=== PATIENT | female | born 1990 | race Caucasian/White ===

== ENCOUNTER → 2016-09-23 | Outpatient (REF) | payer BC ==
[~2016-09-23] MED LIST: ACET50TAOT PO; BROM1TAB PO; CYCL10TA PO; IBUP800T23 PO
[2016-09-23 16:18] LABS: FOLLICLE STIMULATING HORMONE 4.3 mIU/mL; LUTEINIZING HORMONE 2.3 mIU/mL
== END ==
LOC: M LABDRAW1 15:36
PROVIDERS: ATTEND Internal Medicine Endocrinology, Diabetes & Metabolism
DX: E22.1 Hyperprolactinemia (principal)

== ENCOUNTER → 2016-10-08 | Outpatient (REF) | payer BC | LOC: M SFHCWAGY 15:18 | PROVIDERS: ATTEND Nurse Practitioner Women's Health | DX: Z12.4 Encounter for screening for malignant neoplasm of cervix (principal) ==

== ENCOUNTER → 2017-03-16 | Outpatient (CLI) | payer BC ==
[~2017-03-16] MED LIST changes: +IBUP1TAB7 PO; -IBUP800T23 PO
--- NOTE | 2017-03-16 20:56 | REP ---
Clinical: Right-sided pain. Technique: AP, lateral, flexion/extension, bilateral oblique, and open-mouth views. Findings: Alignment and lordosis is maintained. There is no evidence for acute fracture / compression injury or subluxation. No significant degenerative changes are appreciated. Oblique views demonstrate patent neural foramen. Open mouth view demonstrates normal C1-C2 articulation and odontoid process. Impression: Normal cervical spine series. Signed by Low Elizalde MD 03/16/2017 08:49 P
== END ==
LOC: M WUC 10:49
PROVIDERS: ATTEND Physician Assistant
DX: S13.4XXA Sprain of ligaments of cervical spine, initial encounter (principal); X58.XXXA Exposure to other specified factors, initial encounter; Y93.9 Activity, unspecified; Y92.9 Unspecified place or not applicable; Y99.8 Other external cause status

== ENCOUNTER → 2017-04-14 | Outpatient (CLI) | payer BC ==
--- NOTE | 2017-04-14 15:05 | REP ---
TRANSVAGINAL PELVIC ULTRASOUND, FOLLICLE STUDY: Real-time ultrasound evaluation of pelvis performed utilizing transvaginal technique. The uterus measures 6.9 x 3.2 x 1.9 cm. Endometrial stripe is trilaminar with thickness of 3 mm. There is no free fluid. The right ovary measures 3.4 x 2.7 x 1.9 cm. Multiple subcentimeter follicles are seen in the right ovary with no follicles greater than 1 cm in diameter. The left ovary measures 2.8 x 2.4 x 1.9 cm. Multiple subcentimeter follicles are seen in the left ovary without any follicles greater than 1 cm in diameter.
[2017-04-14 15:54] LABS: ESTRADIOL 25.9 PG/ML; FOLLICLE STIMULATING HORMONE 6.6 mIU/mL; HCG, SERUM QUANTITATIVE < 1.0 MIU/ML; LUTEINIZING HORMONE 5.8 mIU/mL; PROGESTERONE 0.5 NG/ML
== END ==
LOC: M WHC 12:59
PROVIDERS: ATTEND Obstetrics & Gynecology Reproductive Endocrinology
DX: N97.9 Female infertility, unspecified (principal)

== ENCOUNTER → 2017-06-01 | Outpatient (CLI) | payer BC ==
--- NOTE | 2017-06-01 15:47 | REP ---
TRANSVAGINAL PELVIC ULTRASOUND FOLLICLE STUDY: Real-time sonographic evaluation of the pelvis utilizing transvaginal technique. Uterus measures 6.6 x 3.0 x 2.0 cm. Endometrial stripe measures 3 mm with a trilaminar appearance. No endometrial fluid collection or free fluid is seen. The right ovary measures 3.9 x 2.9 x 1.8 cm. Multiple subcentimeter follicles are seen in the right ovary with no dominant follicle over 1 cm in diameter. Left ovary measures 3.1 x 2.5 x 1.9 cm. Multiple subcentimeter follicles are seen in the left ovary without a dominant follicle greater than 1 cm in diameter.
== END ==
LOC: M WHC 08:30
PROVIDERS: ATTEND Obstetrics & Gynecology Reproductive Endocrinology
DX: E28.2 Polycystic ovarian syndrome (principal)

== ENCOUNTER → 2017-06-01 | Outpatient (REF) | payer BC ==
[2017-06-01 11:53] LABS: ESTRADIOL 33.5 PG/ML; LUTEINIZING HORMONE 6.7 mIU/mL; PROGESTERONE 0.3 NG/ML
== END ==
LOC: M LABDRAW1 11:27
PROVIDERS: ATTEND Obstetrics & Gynecology Reproductive Endocrinology
DX: E28.2 Polycystic ovarian syndrome (principal)

== ENCOUNTER → 2017-06-04 | Outpatient (CLI) | payer BC ==
--- NOTE | 2017-06-04 09:24 | REP ---
Clinical: Infertility. Technique: Transvaginal ultrasound examination. Findings: Anteverted subseptate uterus measures 6.2 x 1.9 x 3.1 cm. Right cornua measures 2.2 mm thickness; left cornua measures 3.0 mm thickness. No free fluid or adnexal mass lesion. Right ovary measures 3.3 x 2.1 x 2.3 cm and includes approximately 20 sub centimeter follicles. Left ovary measures 3.0 x 1.9 x 3.3 cm and includes over 20 sub centimeter follicles. Impression: Subseptate uterus. Innumerable bilateral sub centimeter follicles. Signed by Low Elizalde MD 06/04/2017 09:15 A
[2017-06-04 10:33] LABS: PROGESTERONE < 0.2 NG/ML
[2017-06-04 10:34] LABS: ESTRADIOL 44.5 PG/ML; LUTEINIZING HORMONE 11.2 mIU/mL
== END ==
LOC: M RAD 08:19
PROVIDERS: ATTEND Obstetrics & Gynecology Reproductive Endocrinology
DX: E28.2 Polycystic ovarian syndrome (principal)

== ENCOUNTER → 2017-06-08 | Outpatient (REF) | payer BC ==
[2017-06-08 15:10] LABS: LUTEINIZING HORMONE 10.6 mIU/mL; PROGESTERONE 0.3 NG/ML
[2017-06-08 15:11] LABS: ESTRADIOL 33.9 PG/ML
== END ==
LOC: M LABDRAW1 13:41
PROVIDERS: ATTEND Obstetrics & Gynecology Reproductive Endocrinology
DX: E28.2 Polycystic ovarian syndrome (principal)

== ENCOUNTER → 2017-06-08 | Outpatient (CLI) | payer BC ==
--- NOTE | 2017-06-08 14:22 | REP ---
TRANSVAGINAL PELVIC ULTRASOUND FOLLICLE STUDY: Real-time sonographic evaluation of the pelvis is performed utilizing transvaginal technique. The uterus measures 6.6 x 1.9 x 3.2 cm. Endometrial stripe is 3 mm with no endometrial fluid collection or free fluid. Right ovary measures 3.7 x 2.0 x 2.2 cm. There are two dominant follicles measuring 11 x 6 and 11 x 11 mm. Multiple other subcentimeter follicles are seen. Left ovary measures 2.9 x 2.2 x 2.4 cm. Two dominant follicles measure 1 cm in diameter. Multiple other subcentimeter follicles are seen in the left ovary.
== END ==
LOC: M WHC 13:05
PROVIDERS: ATTEND Obstetrics & Gynecology Reproductive Endocrinology
DX: E28.2 Polycystic ovarian syndrome (principal); N83.02 Follicular cyst of left ovary

== ENCOUNTER → 2017-06-14 | Outpatient (REF) | payer BC ==
[2017-06-14 14:14] LABS: PROGESTERONE 0.3 NG/ML
[2017-06-14 14:15] LABS: ESTRADIOL 57.8 PG/ML
[2017-06-14 14:20] LABS: LUTEINIZING HORMONE 3.9 mIU/mL
== END ==
LOC: M LABDRAW1 12:47
PROVIDERS: ATTEND Obstetrics & Gynecology Reproductive Endocrinology
DX: E28.2 Polycystic ovarian syndrome (principal)

== ENCOUNTER → 2017-06-14 | Outpatient (CLI) | payer BC ==
--- NOTE | 2017-06-14 12:02 | REP ---
Transvaginal pelvic sonography: History: Follicle study. Polycystic ovary.. Findings: Uterine dimensions today are normal at 6.6 x 3.2 x 2.1 cm. Endometrial stripe 0.4 cm thick. Three line morphology. No free fluid or focal uterine mass is seen. Overall dimensions of the right ovary today are 3.7 x 3.4 x 1.8 cm. There is a 1.4 x 1.2 cm follicle in the right ovary. In addition, the right ovary contains 13 follicles ranging in size from 0.5 to 0.9 cm. There are 14 follicles ranging in size from 0.2 to 0.5 cm. The overall dimensions of the left ovary today are 3.2 x 2.0 x 1.9 cm. There are two follicles in the left ovary over a centimeter in diameter as follows: 1.5 x 0.6 and 1.3 x 0.7 cm. In addition, there are six follicles in the left ovary between 0.5 and 0.7 cm in diameter and there are 13 follicles in the left ovary below 0.5 cm in diameter. Impression: Ovarian follicle study as above. Signed by Al Strong MD 06/14/2017 11:54 A
== END ==
LOC: M WHC 10:30
PROVIDERS: ATTEND Obstetrics & Gynecology Reproductive Endocrinology
DX: E28.2 Polycystic ovarian syndrome (principal)

== ENCOUNTER → 2017-06-16 | Outpatient (CLI) | payer BC ==
--- NOTE | 2017-06-16 11:14 | REP ---
Transvaginal pelvic sonography: History: Infertility. Comparison study: June 14, 2017. Findings: Transvaginal uterine dimensions today are normal at 7.1 x 2.2 x 3.3 cm. Endometrial stripe is 0.5 cm thick and centrally placed. No free fluid or focal uterine mass lesion is seen. Overall dimensions of the right ovary today is 3.3 x 2.7 x 2.7 cm. The right ovary contains two follicles over a centimeter measured as follows: 2.1 x 1.5 and 2.0 x 1.9 cm. In addition, the right ovary contains 12 follicles ranging in size from 0.3-0.6 cm. Overall dimensions of the left ovary today are 3.2 x 2.1 x 2.0 cm. There are two follicles over a centimeter in the left ovary measuring 1.3 x 1.0 cm and 1.2 x 0.8 cm. In addition, the left ovary contains eight follicles ranging in size from 0.3-0.9 cm. No other abnormality. Impression: Ovarian follicle study as above.
[2017-06-16 12:23] LABS: ESTRADIOL 68.6 PG/ML; LUTEINIZING HORMONE 4.1 mIU/mL; PROGESTERONE < 0.2 NG/ML
== END ==
LOC: M LABDRAW1 10:03 → M WHC 10:03
PROVIDERS: ATTEND Obstetrics & Gynecology Reproductive Endocrinology
DX: E28.2 Polycystic ovarian syndrome (principal)

== ENCOUNTER → 2017-06-25 | Outpatient (CLI) | payer BC ==
[2017-06-25 18:35] LABS: ESTRADIOL 63.4 PG/ML; PROGESTERONE 13.7 NG/ML
== END ==
LOC: M LAB 16:40
PROVIDERS: ATTEND Obstetrics & Gynecology Reproductive Endocrinology
DX: Z31.49 Encounter for other procreative investigation and testing (principal)

== ENCOUNTER → 2017-07-02 | Outpatient (REF) | payer BC ==
[2017-07-02 11:23] LABS: HCG, SERUM QUANTITATIVE < 1.0 MIU/ML
[2017-07-02 11:31] LABS: PROGESTERONE 6.2 NG/ML
== END ==
LOC: M LABDRAW1 10:34
PROVIDERS: ATTEND Obstetrics & Gynecology Reproductive Endocrinology
DX: Z32.00 Encounter for pregnancy test, result unknown (principal)

== ENCOUNTER → 2017-07-15 | Outpatient (CLI) | payer BC ==
[2017-07-15 11:24] LABS: ESTRADIOL 26.2 PG/ML; FOLLICLE STIMULATING HORMONE 3.3 mIU/mL; LUTEINIZING HORMONE 4.1 mIU/mL
[2017-07-15 11:24] LABS: PROGESTERONE 0.2 NG/ML
[2017-07-15 11:27] LABS: HCG, SERUM QUANTITATIVE < 1.0 MIU/ML
== END ==
LOC: M WHC 08:32
DX: N97.9 Female infertility, unspecified (principal)
CPT/HCPCS: 83001

== ENCOUNTER → 2017-07-20 | Outpatient (CLI) | payer BC ==
[2017-07-20 14:38] LABS: LUTEINIZING HORMONE 11.9 mIU/mL
[2017-07-20 14:38] LABS: PROGESTERONE < 0.2 NG/ML
[2017-07-20 14:39] LABS: ESTRADIOL < 19.0 PG/ML
== END ==
LOC: M WHC 11:01
DX: E28.2 Polycystic ovarian syndrome (principal)
CPT/HCPCS: 83002

== ENCOUNTER → 2017-07-23 | Outpatient (REF) | payer BC ==
[2017-07-23 11:54] LABS: HCG, SERUM QUANTITATIVE < 1.0 MIU/ML
[2017-07-23 12:03] LABS: LUTEINIZING HORMONE 8.9 mIU/mL
[2017-07-23 12:03] LABS: PROGESTERONE < 0.2 NG/ML
[2017-07-23 12:04] LABS: ESTRADIOL < 19.0 PG/ML; FOLLICLE STIMULATING HORMONE 4.8 mIU/mL
== END ==
LOC: M LABDRAW1 10:31
DX: N97.9 Female infertility, unspecified (principal)
CPT/HCPCS: 83001

== ENCOUNTER → 2017-07-26 | Outpatient (CLI) | payer BC | LOC: M WHC 13:05 | DX: E28.2 Polycystic ovarian syndrome (principal) | CPT/HCPCS: 76830 ==

== ENCOUNTER → 2017-07-26 | Outpatient (REF) | payer BC ==
[2017-07-26 15:23] LABS: PROGESTERONE < 0.2 NG/ML
[2017-07-26 15:24] LABS: ESTRADIOL 58.9 PG/ML; LUTEINIZING HORMONE 3.7 mIU/mL
== END ==
LOC: M LABDRAW1 13:55
DX: E28.2 Polycystic ovarian syndrome (principal)

== ENCOUNTER → 2017-07-28 | Outpatient (REF) | payer BC ==
[2017-07-28 16:24] LABS: ESTRADIOL 882.3 PG/ML; LUTEINIZING HORMONE 1.4 mIU/mL
[2017-07-28 16:25] LABS: PROGESTERONE < 0.2 NG/ML
== END ==
LOC: M LABDRAW1 13:14
DX: E28.2 Polycystic ovarian syndrome (principal)
CPT/HCPCS: 83002

== ENCOUNTER → 2017-07-28 | Outpatient (CLI) | payer BC | LOC: M WHC 13:28 | DX: E28.2 Polycystic ovarian syndrome (principal) | CPT/HCPCS: 76830 ==

== ENCOUNTER → 2017-07-30 | Outpatient (CLI) | payer BC | LOC: M WHC 13:02 | DX: E28.2 Polycystic ovarian syndrome (principal) | CPT/HCPCS: 76830 ==

== ENCOUNTER → 2017-07-30 | Outpatient (REF) | payer BC ==
[2017-07-30 16:43] LABS: PROGESTERONE 0.3 NG/ML
[2017-07-30 16:44] LABS: ESTRADIOL 877.7 PG/ML
== END ==
LOC: M LABDRAW1 15:50
DX: N97.9 Female infertility, unspecified (principal)

== ENCOUNTER 2017-08-01 03:48 | Emergency (ER) | payer BC ==
[2017-08-01] MEDS: CARISOPRODOL 350 MG TAB PO (04:45)
[2017-08-01] MEDS: HYDROmorphone HCL 1 MG/ML SYRINGE (J1170) IM (04:45)
== END 2017-08-01 06:00 | disposition home or self-care (01) ==
LOC: M ED 03:48
DX: M62.830 Muscle spasm of back (principal); E23.7 Disorder of pituitary gland, unspecified; Z88.0 Allergy status to penicillin; Z88.1 Allergy status to other antibiotic agents; Z88.5 Allergy status to narcotic agent; Z88.8 Allergy status to other drugs, medicaments and biological substances
CPT/HCPCS: J1170

== ENCOUNTER → 2017-08-09 | Outpatient (REF) | payer BC ==
[2017-08-09 15:45] LABS: PROGESTERONE 7.5 NG/ML
[2017-08-09 15:46] LABS: ESTRADIOL 496.3 PG/ML
== END ==
LOC: M LABDRAW1 13:29
DX: N97.9 Female infertility, unspecified (principal)

== ENCOUNTER → 2017-08-16 | Outpatient (REF) | payer BC ==
[2017-08-16 12:07] LABS: HCG, SERUM QUANTITATIVE < 1.0 MIU/ML
[2017-08-16 12:31] LABS: PROGESTERONE 11.4 NG/ML
== END ==
LOC: M LABDRAW1 10:36
DX: Z32.00 Encounter for pregnancy test, result unknown (principal)

== ENCOUNTER → 2017-09-21 | Outpatient (REF) | payer BC ==
[2017-09-21 14:11] LABS: APPEARANCE, URINE CLEAR (CLEAR); BACTERIA, URINE AUTO 2+ (NEGATIVE); BILIRUBIN, URINE AUTO NEGATIVE (NEGATIVE); BLOOD, URINE BLOOD NEGATIVE (NEGATIVE); COLOR, URINE AMBER (YELLOW); GLUCOSE, URINE (UA) AUTO NEGATIVE (NEGATIVE); KETONE, URINE AUTO NEGATIVE (NEGATIVE); LEUKOCYTE ESTERASE, URINE AUTO 1+ (NEGATIVE); NITRITE, URINE AUTO POSITIVE (NEGATIVE); PROTEIN, URINE AUTO NEGATIVE (NEGATIVE); RBC, URINE AUTO 1 /HPF (0-3); SPECIFIC GRAVITY URINE AUTO 1.003 (1.002-1.035); SQUAMOUS EPITHELIAL CELL UR AU 2 /HPF (0-6); WBC, URINE AUTO 27 /HPF (0-3)
== END ==
LOC: M LAB REF 13:12
DX: N39.0 Urinary tract infection, site not specified (principal)
CPT/HCPCS: 81001

== ENCOUNTER → 2017-11-18 | Outpatient (CLI) | payer BC | LOC: M WHC 08:37 | DX: E28.9 Ovarian dysfunction, unspecified (principal) | CPT/HCPCS: 76830 ==

== ENCOUNTER → 2017-11-18 | Outpatient (CLI) | payer BC ==
[2017-11-18 11:15] LABS: ESTRADIOL < 19.0 PG/ML; LUTEINIZING HORMONE 7.2 mIU/mL
[2017-11-18 11:15] LABS: PROGESTERONE < 0.2 NG/ML
== END ==
LOC: M SMT 09:52
DX: E28.9 Ovarian dysfunction, unspecified (principal)
CPT/HCPCS: 83002

== ENCOUNTER → 2017-11-22 | Outpatient (CLI) | payer BC | LOC: M WHC 14:21 | DX: E28.9 Ovarian dysfunction, unspecified (principal) | CPT/HCPCS: 76830 ==

== ENCOUNTER → 2017-11-22 | Outpatient (REF) | payer BC ==
[2017-11-22 16:37] LABS: PROGESTERONE < 0.2 NG/ML
[2017-11-22 16:37] LABS: LUTEINIZING HORMONE 10.8 mIU/mL
[2017-11-22 16:38] LABS: ESTRADIOL 26.4 PG/ML
== END ==
LOC: M LABDRAW1 15:03
DX: E28.2 Polycystic ovarian syndrome (principal)
CPT/HCPCS: 83002

== ENCOUNTER → 2017-11-26 | Outpatient (CLI) | payer BC | LOC: M WHC 08:11 | DX: E28.9 Ovarian dysfunction, unspecified (principal); N83.11 Corpus luteum cyst of right ovary; N83.12 Corpus luteum cyst of left ovary | CPT/HCPCS: 76830 ==

== ENCOUNTER → 2017-11-30 | Outpatient (CLI) | payer BC | LOC: M WHC 09:33 | DX: E28.9 Ovarian dysfunction, unspecified (principal) | CPT/HCPCS: 76830 ==

== ENCOUNTER → 2017-11-30 | Outpatient (REF) | payer BC ==
[2017-11-30 12:25] LABS: PROGESTERONE < 0.2 NG/ML
[2017-11-30 12:26] LABS: ESTRADIOL 24.7 PG/ML
== END ==
LOC: M LABDRAW1 10:57
DX: E28.9 Ovarian dysfunction, unspecified (principal)
CPT/HCPCS: 83002

== ENCOUNTER → 2017-12-03 | Outpatient (REF) | payer BC ==
[2017-12-03 12:24] LABS: PROGESTERONE < 0.2 NG/ML
[2017-12-03 12:25] LABS: ESTRADIOL < 19.0 PG/ML
== END ==
LOC: M LABDRAW1 08:55
DX: E28.9 Ovarian dysfunction, unspecified (principal)
CPT/HCPCS: 83002

== ENCOUNTER → 2017-12-03 | Outpatient (CLI) | payer BC | LOC: M WHC 08:04 | DX: E28.9 Ovarian dysfunction, unspecified (principal) | CPT/HCPCS: 76830 ==

== ENCOUNTER → 2018-01-15 | Outpatient (CLI) | payer BC | LOC: M LRY 09:32 | DX: M79.672 Pain in left foot (principal) | CPT/HCPCS: G0463 ==

== ENCOUNTER → 2018-01-28 | Outpatient (CLI) | payer BC ==
[2018-01-28 14:15] LABS: FOLLICLE STIMULATING HORMONE 6.3 mIU/mL; LUTEINIZING HORMONE 4.5 mIU/mL; PROLACTIN 57.2 NG/ML
[2018-01-28 14:21] LABS: ANION GAP 9 MEQ/L (8-16); BLOOD UREA NITROGEN 9 MG/DL (7-18); CALCIUM LEVEL 9.8 MG/DL (8.5-10.1); CARBON DIOXIDE LEVEL 28 MEQ/L (21-32); CHLORIDE LEVEL 104 MEQ/L (98-107); CHOLESTEROL LEVEL 302 MG/DL (<200); CHOLESTEROL RISK RATIO 7.947 (<5); CREATININE FOR GFR 0.75 MG/DL (0.55-1.30); FREE T4 0.83 NG/DL (0.76-1.46); GLOMERULAR FILTRATION RATE > 60.0 (>60); GLUCOSE, FASTING 90 MG/DL (70-100); HDL CHOLESTEROL 38 MG/DL (>40); NON-HDL-C 264 MG/DL; POTASSIUM SERUM 3.8 MEQ/L (3.5-5.1); SODIUM LEVEL 141 MEQ/L (136-145); TRIGLYCERIDES LEVEL 215 MG/DL (<150)
[2018-02-07 00:07] LABS: INSULIN-LIKE GROWTH FACTOR II 841 ng/mL (.)
== END ==
LOC: M SMT 10:34
DX: D35.2 Benign neoplasm of pituitary gland (principal); R63.5 Abnormal weight gain; L65.9 Nonscarring hair loss, unspecified; E28.2 Polycystic ovarian syndrome
CPT/HCPCS: 83001

== ENCOUNTER 2018-06-05 16:11 | Emergency (ER) | payer BC ==
[2018-06-05 17:16] LABS: BASO # 0.1 10^3/uL (0.0-0.2); BASO % 0.5 % (0.0-1.0); EOS # 0.2 10^3/uL (0.0-0.50); EOS % 1.4 % (0.0-3.0); HEMATOCRIT 37.3 % (36.0-47.0); HEMOGLOBIN 12.5 g/dl (12.0-15.5); IMMATURE GRANULOCYTE % 0.5 % (0-3.0); LYMPH # 4.2 10^3/uL (1.5-6.5); LYMPH % 35.4 % (24.0-44.0); MEAN CORPUSCULAR HEMOGLOBIN 29.7 pg (27.0-33.0); MEAN CORPUSCULAR HGB CONC 33.5 g/dl (32.0-36.5); MEAN CORPUSCULAR VOLUME 88.6 fl (80.0-96.0); MONO # 0.7 10^3/uL (0.0-0.8); NEUTROPHILS # 6.6 10^3/uL (1.8-7.7); NEUTROPHILS % 56.2 % (36.0-66.0); PLATELET COUNT, AUTOMATED 324 10^3/uL (150-450); RED BLOOD COUNT 4.21 10^6/uL (4.00-5.40); RED CELL DISTRIBUTION WIDTH 12.7 % (11.5-14.5); WHITE BLOOD COUNT 11.8 10^3/uL (4.0-10.0)
[2018-06-05 17:33] LABS: KETONE, URINE AUTO RFX NEGATIVE (NEGATIVE); LEUKOCYTE ESTERASE UR AUTO RFX NEGATIVE (NEGATIVE); MUCUS, URINE RFX SMALL (NEGATIVE); NITRITE, URINE AUTO RFX NEGATIVE (NEGATIVE); RBC, URINE AUTO RFX 2 /HPF (0-3); SQUAM EPITHELIAL CELL UR AURFX 1 /HPF (0-6); WBC, URINE AUTO RFX 1 /HPF (0-3)
[2018-06-05 17:48] LABS: CONTROL LINE HCG INT CTR LINE PRESENT; HCG, SERUM QUALITATIVE NEGATIVE (NEGATIVE)
[2018-06-05 17:50] LABS: ALBUMIN 3.6 GM/DL (3.2-5.2); ALBUMIN/GLOBULIN RATIO 0.84 (1.00-1.93); ALKALINE PHOSPHATASE 78 U/L (45-117); ALT/SGPT 22 U/L (12-78); ANION GAP 10 MEQ/L (8-16); AST/SGOT 17 U/L (7-37); BILIRUBIN,DIRECT < 0.1 MG/DL (0.0-0.2); BILIRUBIN,TOTAL 0.3 MG/DL (0.2-1.0); BLOOD UREA NITROGEN 10 MG/DL (7-18); CALCIUM LEVEL 9.1 MG/DL (8.5-10.1); CARBON DIOXIDE LEVEL 25 MEQ/L (21-32); CHLORIDE LEVEL 103 MEQ/L (98-107); CREATININE FOR GFR 0.84 MG/DL (0.55-1.30); GLOMERULAR FILTRATION RATE > 60.0 (>60); GLUCOSE, FASTING 86 MG/DL (70-100); LIPASE 131 U/L (73-393); POTASSIUM SERUM 3.9 MEQ/L (3.5-5.1); SODIUM LEVEL 138 MEQ/L (136-145); TOTAL PROTEIN 7.9 GM/DL (6.4-8.2)
[2018-06-05] MEDS: ONDANSETRON 4 MG ORAL DISINTEGRATING TAB (Q0162 PER 1MG) PO (18:41)
== END 2018-06-05 18:50 | disposition home or self-care (01) ==
LOC: M ED 16:11
DX: N92.6 Irregular menstruation, unspecified (principal); K21.9 Gastro-esophageal reflux disease without esophagitis; E28.2 Polycystic ovarian syndrome; Z88.0 Allergy status to penicillin; Z88.1 Allergy status to other antibiotic agents; Z88.5 Allergy status to narcotic agent; Z88.8 Allergy status to other drugs, medicaments and biological substances
CPT/HCPCS: Q0162

== ENCOUNTER → 2018-12-09 | Outpatient (CLI) | payer BC ==
[~2018-12-09] MED LIST changes: +ACET500T15 PO; -ACET50TAOT PO; +KELN1TAB; +RANI15TA PO; +ZOFR4TAB14 PO
== END ==
LOC: M LRY 09:32
PROVIDERS: ATTEND Internal Medicine Endocrinology, Diabetes & Metabolism
DX: D35.2 Benign neoplasm of pituitary gland (principal)

== ENCOUNTER → 2019-01-17 | Outpatient (REF) | payer BC | LOC: M LAB REF 12:38 | PROVIDERS: ATTEND Physician Assistant Medical | DX: J02.9 Acute pharyngitis, unspecified (principal) ==

== ENCOUNTER → 2019-04-18 | Outpatient (CLI) | payer BC ==
[2019-04-18 12:34] LABS: FREE T4 0.84 NG/DL (0.76-1.46)
[2019-04-18 12:35] LABS: CORTISOL AM 17.2 UG/DL (4.3-22.4)
[2019-04-18 12:36] LABS: LUTEINIZING HORMONE < 0.1 mIU/mL; PROLACTIN 38.7 NG/ML
== END ==
LOC: M LRY 08:34
PROVIDERS: ATTEND Internal Medicine Endocrinology, Diabetes & Metabolism
DX: D35.2 Benign neoplasm of pituitary gland (principal)

== ENCOUNTER 2019-05-25 15:27 | Emergency (ER) | payer BC ==
[~2019-05-25] VITALS: Ht 160 cm; Wt 80.5 kg
[2019-05-25] MEDS ORDERED: PREN200C PO (15:58)
--- NOTE | 2019-05-25 16:21 | REP ---
CT brain: 05/25/2019. Indication: Head trauma. Comparison: 01/17/2016. Technique: Unenhanced axial CT images of the brain were obtained from skull base to vertex. Findings: There is no acute intracranial hemorrhage, acute cortical infarction, mass effect or hydrocephalous. No acute calvarial fracture is present. Periosteal mucosal thickening and postoperative sequelae of the sinuses are noted without evidence of acute inflammation. The mastoid air cells are clear. Impression: No acute intracranial process. Electronically Signed by Herb Croft DO 05/25/2019 04:13 P
[2019-05-25 16:48] VITALS: BP 114/78
== END 2019-05-25 16:49 | disposition home or self-care (01) ==
LOC: M ED 15:27
DX: S06.0X1A Concussion with loss of consciousness of 30 minutes or less, initial encounter (principal); W19.XXXA Unspecified fall, initial encounter; Y92.099 Unspecified place in other non-institutional residence as the place of occurrence of the external cause; Y93.9 Activity, unspecified; Y99.9 Unspecified external cause status; Z79.899 Other long term (current) drug therapy; Z88.0 Allergy status to penicillin; Z88.5 Allergy status to narcotic agent; Z88.8 Allergy status to other drugs, medicaments and biological substances

== ENCOUNTER → 2019-06-07 | Outpatient (CLI) | payer BC ==
[~2019-06-07] MED LIST changes: +PREN200C PO
[2019-06-13 08:08] LABS: ADRENOCORTICOTROPHIC HORMONE 6.9 pg/mL (7.2-63.3)
== END ==
LOC: M LRY 11:11
PROVIDERS: ATTEND Family Medicine
DX: D44.3 Neoplasm of uncertain behavior of pituitary gland (principal)

== ENCOUNTER → 2019-06-22 | Outpatient (REF) | payer BC | LOC: M LABDRAW1 11:50 | PROVIDERS: ATTEND Physician Assistant | DX: Z32.00 Encounter for pregnancy test, result unknown (principal) ==

== ENCOUNTER → 2019-08-15 | Outpatient (REF) | payer BC ==
[~2019-08-15] MED LIST changes: -BROM1TAB PO; +BROM2.5T2 PO
== END ==
LOC: M LABDRAW1 17:37
PROVIDERS: ATTEND Internal Medicine Endocrinology, Diabetes & Metabolism
DX: E22.1 Hyperprolactinemia (principal)

== ENCOUNTER → 2019-10-27 | Outpatient (REF) | payer BC | LOC: M LABDRAW1 12:47 | PROVIDERS: ATTEND Internal Medicine Endocrinology, Diabetes & Metabolism | DX: E22.1 Hyperprolactinemia (principal) ==

== ENCOUNTER → 2019-12-15 | Outpatient (CLI) | payer BC ==
[~2019-12-15] MED LIST changes: +CYCL-707 PO; -CYCL10TA PO
[2019-12-15 18:32] LABS: ESTRADIOL 185.4 PG/ML; PROGESTERONE 13.84 NG/ML
== END ==
LOC: M LAB 17:22
PROVIDERS: ATTEND Obstetrics & Gynecology Reproductive Endocrinology
DX: E28.9 Ovarian dysfunction, unspecified (principal)

== ENCOUNTER → 2019-12-21 | Outpatient (CLI) | payer BC ==
[2019-12-21 10:47] LABS: HCG, SERUM QUANTITATIVE < 1.0 MIU/ML
== END ==
LOC: M WUC 08:47
PROVIDERS: ATTEND Obstetrics & Gynecology Reproductive Endocrinology
DX: Z32.00 Encounter for pregnancy test, result unknown (principal)

== ENCOUNTER → 2020-01-17 | Outpatient (CLI) | payer BC ==
[2020-01-17 10:44] LABS: ESTRADIOL 222.4 PG/ML; PROGESTERONE 25.58 NG/ML
== END ==
LOC: M WUC 08:43
PROVIDERS: ATTEND Obstetrics & Gynecology Reproductive Endocrinology
DX: E28.9 Ovarian dysfunction, unspecified (principal)

== ENCOUNTER → 2020-01-22 | Outpatient (CLI) | payer BC ==
[2020-01-22 11:14] LABS: PROGESTERONE 55.85 NG/ML
== END ==
LOC: M WUC 08:28
PROVIDERS: ATTEND Obstetrics & Gynecology Reproductive Endocrinology
DX: Z32.00 Encounter for pregnancy test, result unknown (principal)

== ENCOUNTER → 2020-01-24 | Outpatient (CLI) | payer BC ==
[~2020-01-24] MED LIST changes: +MAPA500T2 PO; +PRENTAB9 PO
[2020-01-24 11:18] LABS: THYROID STIMULATING HORMONE 2.48 uIU/ML (0.358-3.740)
[2020-01-24 11:20] LABS: ESTRADIOL 273.9 PG/ML; PROGESTERONE 54.67 NG/ML
== END ==
LOC: M WUC 08:48
PROVIDERS: ATTEND Obstetrics & Gynecology Reproductive Endocrinology
DX: Z32.01 Encounter for pregnancy test, result positive (principal); Z3A.00 Weeks of gestation of pregnancy not specified

== ENCOUNTER 2020-05-28 19:53 | Outpatient (CLI) | payer BC ==
[~2020-05-28] VITALS: Ht 160 cm; Wt 78.9 kg
[~2020-05-28 19:53] MED LIST changes: -MAPA500T2 PO; -PRENTAB9 PO
[2020-05-28 20:25] VITALS: BP 93/51
[2020-05-28] MEDS ORDERED: MAPA500T2 PO (21:33)
[2020-05-28] MEDS ORDERED: PRENTAB9 PO (21:33)
== END 2020-05-28 20:45 | disposition home or self-care (01) ==
LOC: M LDO 19:53
PROVIDERS: ATTEND Specialist
DX: O9A.212 Injury, poisoning and certain other consequences of external causes complicating pregnancy, second trimester (principal); S30.810A Abrasion of lower back and pelvis, initial encounter; W07.XXXA Fall from chair, initial encounter; Z3A.22 22 weeks gestation of pregnancy; Z88.1 Allergy status to other antibiotic agents; Z88.6 Allergy status to analgesic agent
CPT/HCPCS: 76815; G0378; G0463

== ENCOUNTER 2020-08-06 10:54 | Outpatient (CLI) | payer BC ==
[~2020-08-06] VITALS: Ht 160 cm; Wt 80.5 kg
[~2020-08-06 10:54] MED LIST changes: +MAPA500T2 PO; +PRENTAB9 PO
[2020-08-06] MEDS ORDERED: TUMS500C PO (11:12)
[2020-08-06 11:31] VITALS: BP 92/68
--- NOTE | 2020-08-06 12:00 | REP ---
INDICATION: cervical length for contractions. COMPARISON: None. TECHNIQUE: Limited transvaginal ultrasound performed to evaluate the cervix. FINDINGS: Cervical length is 3.9 cm and is closed. With transducer pressure, the cervical length remains unchanged at 3.9 cm. IMPRESSION: Cervical length 3.9 cm. <Electronically signed by Luis Lindquist > 08/06/20 [id number]
--- NOTE | 2020-08-06 12:38 | IPNPDOC ---
Text Note Date of Service The patient was seen on 08/06/20. NOTE Triage Note Chelsea is a 29yo with SIUP at 32w3d by IVF dating presenting for episode of vaginal bleeding. She notes a "drop of blood" when she wiped last night and again a "drop of blood" when she wiped this morning. She admits that she is very nervous in this since it was achieved by IVF. She is seen in [place] for her routine OB care and plan is to deliver there. She states she was seen twice in this already for ROM workup and both times negative. She "doesn't understand where the fluid comes from" since she believes it is not urine. She states that her ABIOLA was 9cm when they did u/s with last workup. She does NOT endorse leaking of fluid today. Had some runs of ctx last night but none currently. Good movement. No f/c/n/v/CP/SOB. Vitals wnl, afebrile General: WDWN, NAD, resting comfortably Abdomen: soft, gravid, NTTP Extremities: no edema of BLE SCE: closed/50/-3, soft. NO blood on exam glove Formal TVUS for cervical length: 3.9cm, closed cervix Cat I FHRT with +accels, -decels, mod cynthia [place]: no ctx pattern Assessment: Chelsea is a 29yo with SIUP at 32w3d by IVF dating with NO e/o labor. Vitals wnl, benign exam. Cervical length 3.9cm, closed. Reassuring status. Plan: -Provided reassurance -d/c to home -continue routine care in [place] as scheduled -discussed return precautions MD ALFONSO Varma Fishbone I+O VSEllis I+O Vital Signs Date Time Temp Pulse Resp B/P (MAP) Pulse Ox O2 Delivery O2 Flow Rate FiO2 08/06/20 11:31 98.2 115 20 92/68 (76) Gris Alva MD Aug 06, 2020 12:38
== END 2020-08-06 12:18 | disposition home or self-care (01) ==
LOC: M LDO 10:54
PROVIDERS: ATTEND Obstetrics & Gynecology
DX: O09.813 Supervision of pregnancy resulting from assisted reproductive technology, third trimester (principal); O26.853 Spotting complicating pregnancy, third trimester; Z3A.32 32 weeks gestation of pregnancy
CPT/HCPCS: 59025; 76817; G0378; G0463

== ENCOUNTER → 2020-11-22 | Outpatient (CLI) | payer BC ==
[~2020-11-22] MED LIST changes: +PROHANCE 279.3MG/ML 15ML VIAL As Ordered ONE; +TUMS500C PO
--- NOTE | 2020-11-22 19:05 | REPVR ---
PROCEDURE INFORMATION: Exam: MR Head Without and With Contrast, Sella Exam date and time: 11/22/2020 6:17 PM Age: 30 years old Clinical indication: Other: Hyperprolactinemia; Prior surgery; Surgery date: 6+ months; Surgery type: Pituitary tumor removed TECHNIQUE: Imaging protocol: MR of the head without and with intravenous contrast. Exam focused on the sella. Contrast material: PROHANCE; Contrast volume: 7 ml; Contrast route: INTRAVENOUS (IV); COMPARISON: MRI-Brain without Contrast 03/28/2016 11:15 AM FINDINGS: Brain: There is no evidence of acute stroke. 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 Since this large cyst is stable over a 5 year interval it is suggestive of a benign process. There is no evidence of mass effect. Cerebral ventricles: Normal appearing ventricles. Pituitary gland and sella: The pituitary gland appears normal in size with uniform enhancement. According to history there was a previous pituitary pathology. There is asymmetry within the sphenoid sinus new since 2016 which may be the result of previous surgery. Other vasculature: Vessels of the [id number] have a normal signal void. Bones/joints: Unremarkable. IMPRESSION: 1. Normal-sized pituitary. 2. 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 3. If there is concern of a tiny pituitary adenoma thin-section imaging through the pituitary would be necessary after contrast. Electronically signed by: Vikas Angeles On 11/22/2020 19:04:54 PM
== END ==
LOC: M RAD 17:14
PROVIDERS: ATTEND Neurological Surgery
DX: E22.1 Hyperprolactinemia (principal); D35.2 Benign neoplasm of pituitary gland; E34.8 Other specified endocrine disorders
CPT/HCPCS: 70553; A9576

== ENCOUNTER 2024-11-22 22:02 | Emergency (ER) | payer MEDICAID, SELFPAY ==
[~2024-11-22] VITALS: Ht 160 cm; Wt 77.9 kg
[~2024-11-22 22:02] MED LIST changes: -PROHANCE 279.3MG/ML 15ML VIAL As Ordered ONE
[2024-11-22 22:06] VITALS: BP 122/74; TEMP 99.7; O2SAT 100
[2024-11-22] MEDS ORDERED: ACET500P3 PO (23:30)
== END 2024-11-22 22:36 | disposition admitted as inpatient to this hospital (09) ==
LOC: M ED 22:02
DX: Z53.21 Procedure and treatment not carried out due to patient leaving prior to being seen by health care provider (principal)

== ENCOUNTER 2024-11-22 22:41 | Outpatient (CLI) | payer MEDICAID ==
[~2024-11-22] VITALS: Ht 160 cm; Wt 78.3 kg
[2024-11-22 22:52] VITALS: BP 100/66
[2024-11-22] MEDS ORDERED: ACET500P3 PO (23:30)
[2024-11-22] MEDS ORDERED: HOME MED LIST COMPLETE! XX SCH (23:35)
[2024-11-23 01:37] LABS: KETONE, URINE AUTO RFX NEGATIVE (NEGATIVE); LEUKOCYTE ESTERASE UR AUTO RFX NEGATIVE (NEGATIVE); MUCUS, URINE RFX SMALL (NEGATIVE); NITRITE, URINE AUTO RFX NEGATIVE (NEGATIVE); RBC, URINE AUTO RFX 1 /HPF (0-3); SQUAM EPITHELIAL CELL UR AURFX 10 /HPF (0-6); WBC, URINE AUTO RFX 1 /HPF (0-3)
== END 2024-11-23 01:01 | disposition home or self-care (01) ==
LOC: M LDO 22:41
PROVIDERS: ATTEND Obstetrics & Gynecology
DX: O26.892 Other specified pregnancy related conditions, second trimester (principal); O34.219 Maternal care for unspecified type scar from previous cesarean delivery; O32.1XX0 Maternal care for breech presentation, not applicable or unspecified; O92.29 Other disorders of breast associated with pregnancy and the puerperium; R10.31 Right lower quadrant pain; Z3A.18 18 weeks gestation of pregnancy; Z80.3 Family history of malignant neoplasm of breast; Z80.0 Family history of malignant neoplasm of digestive organs; Z88.1 Allergy status to other antibiotic agents; Z88.5 Allergy status to narcotic agent
CPT/HCPCS: 76811; 81001; G0463

== ENCOUNTER 2025-03-24 22:05 | Outpatient (CLI) | payer OTHER ==
[~2025-03-24] VITALS: Ht 160 cm; Wt 84.6 kg
[~2025-03-24 22:05] MED LIST changes: +ACET500P3 PO
[2025-03-25 01:05] VITALS: BP 101/69
[2025-03-25 01:45] LABS: PLATELET COUNT, AUTOMATED 261 10^3/uL (150-450)
[2025-03-25 02:06] LABS: LDH LACTATE DEHYDROGENASE 141 U/L (120-246)
[2025-03-25 02:07] LABS: ALT/SGPT < 9 U/L (7.0-40); AST/SGOT 8 U/L (<34); CREATININE FOR GFR 0.48 MG/DL (0.55-1.30); GLOMERULAR FILTRATION RATE > 90.0 (>60)
== END 2025-03-25 02:30 | disposition home or self-care (01) ==
LOC: M LDO 22:05
PROVIDERS: ATTEND Obstetrics & Gynecology
DX: O26.893 Other specified pregnancy related conditions, third trimester (principal); R10.11 Right upper quadrant pain; Z3A.35 35 weeks gestation of pregnancy; N63.10 Unspecified lump in the right breast, unspecified quadrant
CPT/HCPCS: 36415; 59025; 82247; 83615; 84450; 84460; 84550; 85027; G0463

== ENCOUNTER → 2025-05-15 | Outpatient (CLI) | payer OTHER ==
[~2025-05-15] MED LIST changes: +PROHANCE 279.3MG/ML 15ML VIAL ONE
== END ==
LOC: M PLAIMG 08:48
PROVIDERS: ATTEND Internal Medicine Medical Oncology
DX: N64.89 Other specified disorders of breast (principal); N63.21 Unspecified lump in the left breast, upper outer quadrant
CPT/HCPCS: 77049; A9576